=== PATIENT | female | born 1990 | race American Indian/Alaskan Native ===

== ENCOUNTER 2018-03-22 12:12 | Emergency (ER) | payer SELFPAY ==
[2018-03-22 13:10] VITALS: BP 109/71
--- NOTE | 2018-03-22 13:48 | Emergency Department Report ---
Chief Complaint: Urogenital-Female Stated Complaint: ABD PAIN,SPOTTING Time Seen by Provider: 03/22/18 13:46 - HPI History of Present Illness: Ms. Jovel desires to be evaluated for possible STD. She has vaginal discharge. Denies pain. - Exam Vital Signs: Vital Signs 03/22/18 13:07 Temperature 98.3 F Pulse Rate 93 H Respiratory 16 Rate Blood Pressure 109/71 O2 Sat by Pulse 98 Oximetry MSE screening note: Focused history and physical exam performed. Due to findings the following was ordered: ED Medical Decision Making - Medical Decision Making Ms. Jovel appears well without indication of life or limb threatening emergency. She was given resources for outpatient care. ED Disposition for MSE Clinical Impression: Vaginal discharge Disposition: TO HOME OR SELFCARE Is pt being admited?: No Does the pt Need Aspirin: No Condition: Stable Instructions: Sexually Transmitted Diseases (ED), Safe Sex (ED) Referrals: [facility] [Outside] - 3-5 Days [facility] [Outside] - 3-5 Days Time of Disposition: 13:47
== END 2018-03-22 14:00 | disposition home or self-care (01) ==
LOC: ED 12:12
DX: N89.8 Other specified noninflammatory disorders of vagina (principal)
CPT/HCPCS: 99282